=== PATIENT | male | born 1980 | race Caucasian/White ===

== ENCOUNTER 2018-11-23 04:25 | Emergency (ER) | payer OTHER ==
[2018-11-23] MEDS: DIPHENHYDRAMINE 25 MG CAP PO (05:18)
[2018-11-23] MEDS: LORAZEPAM 1 MG TAB PO (05:33)
== END 2018-11-23 06:32 | disposition home or self-care (01) ==
LOC: FTE 04:25
DX: F41.1 Generalized anxiety disorder (principal); I11.0 Hypertensive heart disease with heart failure; I50.9 Heart failure, unspecified
CPT/HCPCS: 82962; 93005; 99283-25